=== PATIENT | male | born 1980 | race Caucasian/White ===

== ENCOUNTER 2021-03-14 09:07 | Emergency (ER) | payer BC ==
[~2021-03-14] VITALS: Ht 175.3 cm; Wt 100.0 kg
[2021-03-14 09:31] VITALS: BP 128/81
[2021-03-14 10:23] LABS: BASOPHILS % (AUTO) 0.2 % (0-1); EOSINOPHILS % (AUTO) 0.1 % (0-6); HEMATOCRIT 44.9 % (42.0-52.0); HEMOGLOBIN 15.2 g/dl (14.0-17.9); LYMPHOCYTES # (AUTO) 0.6 X10'3 (1.1-4.8); MEAN CORPUSCULAR HEMOGLOBIN 29.4 PG (27.0-31.0); MEAN CORPUSCULAR HGB CONC 33.9 g/dL (33.0-36.5); MEAN CORPUSCULAR VOLUME 86.7 FL (78-98); MEAN PLATELET VOLUME 10.4 FL (7.4-10.4); MONOCYTES # (AUTO) 0.3 X10'3 (0-0.9); MONOCYTES % (AUTO) 6.7 % (2-12); NEUTROPHILS # (AUTO) 3.7 X10'3 (1.8-7.7); PLATELET COUNT 142 X10'3 (140-440); RED BLOOD COUNT 5.18 X10'6 (4.70-6.10); RED CELL DISTRIBUTION WIDTH 12.9 % (11.5-14.5); WHITE BLOOD COUNT 4.6 X10'3 (4.5-11.0)
[2021-03-14 10:34] LABS: D-DIMER 0.49 MG/L FEU (0-0.50)
[2021-03-14 10:38] LABS: ALANINE AMINOTRANSFERASE 42 U/L (12-78); ALBUMIN 3.4 G/DL (3.4-5.0); ALBUMIN/GLOBULIN RATIO 0.8 (1.1-1.5); ALKALINE PHOSPHATASE 42 IU/L (46-116); ANION GAP 13 (8-16); ASPARTATE AMINO TRANSFERASE 61 U/L (10-37); BILIRUBIN,TOTAL 0.6 MG/DL (0.1-1.0); BLOOD UREA NITROGEN 15 MG/DL (7-18); BUN/CREATININE RATIO 15.6 (5.4-32.0); CALCIUM 8.1 MG/DL (8.5-10.1); CHLORIDE 105 MMOL/L (99-107); CREATININE 0.96 MG/DL (0.60-1.10); GLUCOSE 116 MG/DL (70-104); POTASSIUM 3.8 MMOL/L (3.5-5.1); SODIUM 145 MMOL/L (135-145); TOTAL CARBON DIOXIDE 27.3 MMOL/L (24-32); TOTAL PROTEIN 7.8 G/DL (6.4-8.2); eGFR 87 ML/MIN
[2021-03-14] MEDS ORDERED: BENZ-16 PO (10:48)
[2021-03-14] MEDS ORDERED: ALBU8HFA PO (10:48)
== END 2021-03-14 11:25 | disposition home or self-care (01) ==
LOC: ER 09:08
DX: U07.1 COVID-19 (principal); J12.82 Pneumonia due to coronavirus disease 2019; R50.9 Fever, unspecified; R53.83 Other fatigue; R06.02 Shortness of breath; R43.8 Other disturbances of smell and taste
CPT/HCPCS: 36415; 71045; 80053; 84145; 85025; 85379; 99284